=== PATIENT | female | born 1980 | race African-American/Black ===

== ENCOUNTER 2020-03-30 10:12 | Emergency (ER) | payer OTHER, SELFPAY ==
[2020-03-30 10:36] LABS: #Basophils 0.1 thou/uL (0.0-0.2); #Eosinphils 0.2 thou/uL (0.0-0.7); #Lymphocytes 1.6 thou/uL (1.20-3.40); #Monocytes 0.3 thou/uL (0.11-0.59); #Neutrophils 3.8 thou/uL (1.40-6.50); %Basophils 1.5 % (0.0-1.0); %Eosinophils 3.4 % (0.0-10.0); %Lymphocytes 26.4 % (21.0-51.0); %Monocytes 5.4 % (0.0-10.0); %Neutrophils 63.4 % (42.0-75.0); Hemoglobin 9.7 g/dL (12.0-16.0); Mean Corpuscular Hemoglobin 25.9 pg (27.0-31.0); Mean Corpuscular Volume 83.6 fL (78.0-98.0); Platelet Count 499 thou/uL (130-400); RBC Distribution Width 15.8 % (11.5-14.5); Red Blood Cell (RBC) Count 3.76 mill/uL (4.20-5.40)
[2020-03-30] MEDS ORDERED: Sodium Chloride 0.9% 1,000 ML ONE (10:46)
[2020-03-30 10:49] LABS: ALT (SGPT) 12 U/L (8-55); AST (SGOT) 14 U/L (5-34); Albumin 3.8 g/dL (3.5-5.0); Alkaline Phosphatase 53 U/L (40-110); Anion Gap 14 mmol/L (10-20); BUN (Urea Nitrogen) 7 mg/dL (7.0-18.7); Bilirubin, Total 0.1 mg/dL (0.2-1.2); Calc. Creatinine Clearance 0 mL/min (70-130); Calcium 8.3 mg/dL (7.8-10.44); Carbon Dioxide 20 mmol/L (22-29); Chloride 106 mmol/L (98-107); Globulin 2.8 g/dL (2.4-3.5); Glucose 100 mg/dL (70-105); Protein, Total 6.6 g/dL (6.0-8.3); Sodium 137 mmol/L (136-145)
== END 2020-03-30 12:00 | disposition home or self-care (01) ==
LOC: NAV ERS 10:12
DX: R42 Dizziness and giddiness (principal); D64.9 Anemia, unspecified; F17.210 Nicotine dependence, cigarettes, uncomplicated
CPT/HCPCS: 80053; 84484; 85025; 93005; J7050

== ENCOUNTER 2021-01-04 11:18 | Emergency (ER) | payer OTHER ==
[2021-01-05 13:29] LABS: SARS-CoV-2 PCR by NAA Not Detected (NotDetected)
== END 2021-01-04 12:14 | disposition home or self-care (01) ==
LOC: NAV ERS 11:18
DX: J06.9 Acute upper respiratory infection, unspecified (principal); Z20.822 Contact with and (suspected) exposure to COVID-19; F17.210 Nicotine dependence, cigarettes, uncomplicated
CPT/HCPCS: 99284; U0003; U0005

== ENCOUNTER 2021-06-06 17:46 | Emergency (ER) | payer OTHER | END 2021-06-06 18:26 | disposition home or self-care (01) | LOC: NAV ERS 17:46 | DX: K08.89 Other specified disorders of teeth and supporting structures (principal); G89.18 Other acute postprocedural pain; I10 Essential (primary) hypertension | CPT/HCPCS: 99282 ==

== ENCOUNTER 2021-06-16 06:57 | Emergency (ER) | payer OTHER ==
[2021-06-16 18:35] LABS: SARS-CoV-2 PCR by NAA Not Detected (NotDetected)
== END 2021-06-16 07:30 | disposition home or self-care (01) ==
LOC: NAV ERS 06:57
DX: J06.9 Acute upper respiratory infection, unspecified (principal); B34.9 Viral infection, unspecified; I10 Essential (primary) hypertension; D64.9 Anemia, unspecified; Z20.822 Contact with and (suspected) exposure to COVID-19; Z79.899 Other long term (current) drug therapy
CPT/HCPCS: 99283; U0003; U0005

== ENCOUNTER 2021-07-24 18:05 | Emergency (ER) | payer OTHER ==
[2021-07-24] MEDS ORDERED: Acetaminophen 500 MG TAB ONE (19:36)
[2021-07-24] MEDS ORDERED: Sodium Chloride 0.9% 1,000 ML ONE (19:36)
[2021-07-24] MEDS ORDERED: methylPREDNISolone Sod Succ/PF 125 MG/2 ML VIAL ONE (21:03)
[2021-07-24] MEDS ORDERED: Ketorolac Tromethamine 30 MG/ML VIAL ONE (21:03)
== END 2021-07-24 22:02 | disposition home or self-care (01) ==
LOC: NAV ERS 18:05
DX: R51.9 Headache, unspecified (principal); I10 Essential (primary) hypertension; D64.9 Anemia, unspecified
CPT/HCPCS: 96374; 96375; J1885; J2930; J7050

== ENCOUNTER 2021-10-11 21:51 | Emergency (ER) | payer OTHER ==
[2021-10-11] MEDS ORDERED: Cyclobenzaprine 10 MG TAB ONE (22:31)
[2021-10-11] MEDS ORDERED: Lorazepam 2 MG/ML VIAL ONE (22:36)
== END 2021-10-11 22:39 | disposition home or self-care (01) ==
LOC: NAV ERS 21:51
DX: M54.6 Pain in thoracic spine (principal); I10 Essential (primary) hypertension; Z79.899 Other long term (current) drug therapy
CPT/HCPCS: 99283; J2060

== ENCOUNTER 2021-10-18 15:13 | Emergency (ER) | payer OTHER ==
[2021-10-18] MEDS ORDERED: Cephalexin 250 MG CAP ONE (15:39)
== END 2021-10-18 15:50 | disposition home or self-care (01) ==
LOC: NAV ERS 15:13
DX: L03.031 Cellulitis of right toe (principal); I10 Essential (primary) hypertension; D64.9 Anemia, unspecified; Z79.899 Other long term (current) drug therapy
CPT/HCPCS: 99283

== ENCOUNTER 2022-01-07 20:54 | Emergency (ER) | payer OTHER | END 2022-01-07 21:49 | disposition home or self-care (01) | LOC: NAV ERS 20:54 | DX: F41.9 Anxiety disorder, unspecified (principal); I10 Essential (primary) hypertension; F17.210 Nicotine dependence, cigarettes, uncomplicated; Z79.899 Other long term (current) drug therapy | CPT/HCPCS: 99283 ==

== ENCOUNTER 2023-03-08 00:29 | Emergency (ER) | payer OTHER ==
[2023-03-08] MEDS ORDERED: Ketorolac Tromethamine 30 MG/ML VIAL ONE (00:50)
== END 2023-03-08 02:35 | disposition home or self-care (01) ==
LOC: NAV ERS 00:29
DX: M25.511 Pain in right shoulder (principal); I10 Essential (primary) hypertension; F17.210 Nicotine dependence, cigarettes, uncomplicated; Z79.899 Other long term (current) drug therapy
CPT/HCPCS: 96374; J1885

== ENCOUNTER 2023-03-08 17:37 | Emergency (ER) | payer OTHER | END 2023-03-08 18:23 | disposition left against medical advice (07) | LOC: NAV ERS 17:37 | DX: M75.31 Calcific tendinitis of right shoulder (principal); I10 Essential (primary) hypertension; F17.210 Nicotine dependence, cigarettes, uncomplicated; Z79.899 Other long term (current) drug therapy | CPT/HCPCS: 99283 ==

== ENCOUNTER 2023-04-19 15:16 | Emergency (ER) | payer OTHER, SELFPAY ==
[2023-04-19] MEDS ORDERED: Acetaminophen 500 MG TAB ONE (16:18)
== END 2023-04-19 16:32 | disposition home or self-care (01) ==
LOC: NAV ERS 15:16
DX: K04.7 Periapical abscess without sinus (principal); I10 Essential (primary) hypertension; F17.210 Nicotine dependence, cigarettes, uncomplicated
CPT/HCPCS: 99282

== ENCOUNTER 2024-03-18 11:59 | Emergency (ER) | payer OTHER | END 2024-03-18 12:49 | disposition home or self-care (01) | LOC: NAV ERS 11:59 | DX: H15.101 Unspecified episcleritis, right eye (principal); I10 Essential (primary) hypertension; Z79.899 Other long term (current) drug therapy | CPT/HCPCS: 99283 ==

== ENCOUNTER 2024-05-22 11:42 | Emergency (ER) | payer SELFPAY ==
[2024-05-22] MEDS ORDERED: Penicillin V Potassium 250 MG TAB ONE (13:24)
[2024-05-22] MEDS ORDERED: Ibuprofen 800 MG TAB ONE (13:24)
== END 2024-05-22 13:30 | disposition home or self-care (01) ==
LOC: NAV ERS 11:42
DX: K02.9 Dental caries, unspecified (principal); I10 Essential (primary) hypertension; E78.5 Hyperlipidemia, unspecified; F17.210 Nicotine dependence, cigarettes, uncomplicated; Z79.899 Other long term (current) drug therapy
CPT/HCPCS: 99282